=== PATIENT | female | born 1950 | race Caucasian/White ===

== ENCOUNTER 2019-12-02 15:45 | Inpatient (IN) | payer MEDICARE, OTHER ==
[2019-12-02] MEDS ORDERED: CLON.5 PO (17:23)
[2019-12-02] MEDS ORDERED: PARO20TA24 PO (17:23)
[2019-12-02] MEDS ORDERED: OLAN10TA3 PO (17:23)
[2019-12-02] MEDS ORDERED: ATOR40TA28 PO (17:23)
[2019-12-02] MEDS ORDERED: ERGO500054 PO (17:23)
[2019-12-02] MEDS ORDERED: LOPERAMIDE HCL 2 MG CAPSULE PO PRN (20:30)
[2019-12-02] MEDS ORDERED: MAG HYDROX/AL HYDROX/SIMETH ES 30 ML SUSPENSION UDCUP PO PRN (20:30)
[2019-12-02] MEDS ORDERED: ZOLPIDEM TARTRATE 10 MG TABLET PO PRN (20:30)
[2019-12-02] MEDS ORDERED: TUBERCULIN, PURIFIED PROTEIN DERIVATIVE 5 TU/0.1 ML SYRINGE ID ONE (20:30)
[2019-12-02] MEDS ORDERED: INFLUENZA VIRUS VACCINE QVS 2019-20 (3YR+)/PF 60 MCG/0.5 ML SYRINGE IM ONE (20:30)
[2019-12-02] MEDS ORDERED: GuaiFENesin/D-METHORPHAN [SUGAR-FREE] 200-20MG/10 ML SYRUP UDCUP PO PRN (20:30)
[2019-12-02] MEDS ORDERED: MAGNESIUM HYDROXIDE SUSPENSION 30 ML UDCUP PO PRN (20:30)
[2019-12-02] MEDS ORDERED: PROMETHAZINE HCL 25 MG TABLET PO PRN (20:30)
[2019-12-02] MEDS ORDERED: LORazepam 2 MG TABLET PO PRN (20:30)
[2019-12-02] MEDS ORDERED: ACETAMINOPHEN 325 MG TABLET PO PRN (20:30)
[2019-12-02] MEDS ORDERED: HydrOXYzine PAMOATE 50 MG CAPSULE PO PRN (20:30)
[2019-12-02] MEDS ORDERED: OLANZapine 5 MG RAPDIS TABLET PO PRN (20:30)
[2019-12-02 21:17] VITALS: BP 135/87
[2019-12-03] MEDS ORDERED: OLAN5TAB40 PO (08:04)
[2019-12-03] MEDS ORDERED: PARO20TA24 PO (08:04)
[2019-12-03] MEDS ORDERED: PARO-37 PO (08:07)
[2019-12-03] MEDS ORDERED: OLAN5TAB30 PO (08:07)
[2019-12-03] MEDS ORDERED: LORA-999 PO (08:07)
[2019-12-03] MEDS: LORazepam 0.5 MG TABLET PO SCH ×5 (09:00→20:58)
[2019-12-03] MEDS: MULTIVITAMINS WITH MINERALS, THERAPEUTIC TABLET PO SCH (09:00)
[2019-12-03] MEDS: OLANZapine 5 MG RAPDIS TABLET PO SCH ×2 (09:00→16:19)
[2019-12-03] MEDS: THIAMINE 100 MG TABLET PO SCH ×2 (09:00→16:19)
[2019-12-03] MEDS: FOLIC ACID 1 MG TABLET PO SCH (09:00)
[2019-12-03] MEDS: PARoxetine HCL 20 MG TABLET PO SCH (09:00)
[2019-12-03 10:11] VITALS: BP 130/67
[2019-12-04] MEDS: THIAMINE 100 MG TABLET PO SCH ×2 (09:00→16:59)
[2019-12-04] MEDS: MULTIVITAMINS WITH MINERALS, THERAPEUTIC TABLET PO SCH (09:00)
[2019-12-04] MEDS: LORazepam 0.5 MG TABLET PO SCH ×4 (09:00→21:00)
[2019-12-04] MEDS: OLANZapine 5 MG RAPDIS TABLET PO SCH (09:00)
[2019-12-04] MEDS: FOLIC ACID 1 MG TABLET PO SCH (09:00)
[2019-12-04] MEDS: PARoxetine HCL 20 MG TABLET PO SCH (09:00)
[2019-12-04] MEDS ORDERED: PALIPERIDONE 1.5 MG ER TABLET PO PRN (15:15)
[2019-12-04] MEDS ORDERED: PALIPERIDONE PALMITATE 234 MG/1.5 ML SYRINGE IM ONE (15:15)
[2019-12-04 18:33] VITALS: BP 108/74
[2019-12-04] MEDS: PALIPERIDONE 3 MG ER TABLET PO SCH (21:00)
[2019-12-05 08:34] VITALS: BP 130/73
[2019-12-05] MEDS: LORazepam 0.5 MG TABLET PO SCH ×4 (09:00→21:00)
[2019-12-05] MEDS: FOLIC ACID 1 MG TABLET PO SCH (09:00)
[2019-12-05] MEDS: PARoxetine HCL 20 MG TABLET PO SCH (09:00)
[2019-12-05] MEDS: MULTIVITAMINS WITH MINERALS, THERAPEUTIC TABLET PO SCH (09:00)
[2019-12-05] MEDS: THIAMINE 100 MG TABLET PO SCH ×2 (09:00→17:00)
[2019-12-05 17:00] VITALS: BP 127/77
[2019-12-05] MEDS: PALIPERIDONE 3 MG ER TABLET PO SCH (21:00)
[2019-12-06 05:22] VITALS: BP 121/74
[2019-12-06 08:08] LABS: BASOPHILS % (AUTO) 0.8 % (0.0-2.0); EOSINOPHILS % (AUTO) 0.9 % (1.0-6.0); HEMATOCRIT 43.4 % (36-46); HEMOGLOBIN 13.8 g/dL (12.0-16.0); LYMPHOCYTES % (AUTO) 21.3 % (22.0-44.0); MEAN CORPUSCULAR HEMOGLOBIN 27.3 pg (26.0-34.0); MEAN CORPUSCULAR HGB CONC 31.8 G/dL (31.0-37.0); MEAN CORPUSCULAR VOLUME 86 fL (80-100); MONOCYTES # (AUTO) 0.5 K/uL (0.1-1.0); MONOCYTES % (AUTO) 12.1 % (2.0-9.0); NEUTROPHILS # (AUTO) 2.9 K/uL (1.8-7.7); NEUTROPHILS % (AUTO) 64.9 % (40.0-70.0); PLATELET COUNT (AUTO) 188 K/uL (150-450); RED BLOOD CELL COUNT(AUTO) 5.05 MIL/uL (4.00-5.20); RED CELL DISTRIBUTION WIDTH 13.1 % (11.5-14.5)
[2019-12-06 08:33] LABS: ALANINE AMINOTRANSFERASE 12 U/L (12-78); ALBUMIN 3.4 g/dL (3.4-5.0); ALKALINE PHOSPHATASE 69 U/L (46-116); ANION GAP 11 mmol/L (8-16); ASPARTATE AMINOTRANSFERASE 12 U/L (15-37); BILIRUBIN,TOTAL 1.3 mg/dL (0.1-1.0); CALCIUM, TOTAL 9.4 mg/dL (8.8-10.5); CARBON DIOXIDE 25 mmol/L (22-29); CHLORIDE 106 mmol/L (98-107); CHOL/HDL RATIO 3.3 (3.9-5.7); CHOLESTEROL 151 mg/dL (131-200); CREATINE KINASE, TOTAL ONLY 18 U/L (26-192); CREATININE 0.72 mg/dL (0.60-1.30); FREE T4 (FREE THYROXINE) 1.37 ng/dL (0.76-1.46); GLOMERULAR FILTR. RATE CALC > 60 mL/min (>60); GLUCOSE,RANDOM 83 mg/dL (70-110); HDL CHOLESTEROL 46 mg/dL (40-60); LDL CHOL (CALC.) 86 mg/dL (0-130); POTASSIUM 3.6 mmol/L (3.5-5.1); SODIUM SERUM 142 mmol/L (136-145); TOTAL PROTEIN, SERUM 6.8 g/dL (6.4-8.2); TRIGLYCERIDES 94 mg/dL (15-150); UREA NITROGEN, BLOOD 19 mg/dL (7-18)
[2019-12-06 08:58] VITALS: BP 101/65
[2019-12-06] MEDS: MULTIVITAMINS WITH MINERALS, THERAPEUTIC TABLET PO SCH (09:00)
[2019-12-06] MEDS: THIAMINE 100 MG TABLET PO SCH ×2 (09:00→17:00)
[2019-12-06] MEDS: PARoxetine HCL 20 MG TABLET PO SCH (09:00)
[2019-12-06] MEDS: LORazepam 0.5 MG TABLET PO SCH ×4 (09:00→21:42)
[2019-12-06] MEDS: FOLIC ACID 1 MG TABLET PO SCH (09:00)
[2019-12-06 16:18] VITALS: BP 125/71
[2019-12-06] MEDS ORDERED: OLANZapine 5 MG RAPDIS TABLET PO PRN (18:45)
[2019-12-06] MEDS: OLANZapine 5 MG RAPDIS TABLET PO SCH (21:42)
[2019-12-07 01:17] VITALS: BP 113/64
[2019-12-07 08:50] LABS: BASOPHILS % (AUTO) 1.1 % (0.0-2.0); EOSINOPHILS % (AUTO) 1.3 % (1.0-6.0); HEMATOCRIT 42.9 % (36-46); LYMPHOCYTES # (AUTO) 0.9 K/uL (1.0-4.8); LYMPHOCYTES % (AUTO) 22.8 % (22.0-44.0); MEAN CORPUSCULAR HGB CONC 32.6 G/dL (31.0-37.0); MEAN CORPUSCULAR VOLUME 86 fL (80-100); MONOCYTES # (AUTO) 0.5 K/uL (0.1-1.0); MONOCYTES % (AUTO) 13.7 % (2.0-9.0); NEUTROPHILS # (AUTO) 2.3 K/uL (1.8-7.7); NEUTROPHILS % (AUTO) 61.1 % (40.0-70.0); PLATELET COUNT (AUTO) 179 K/uL (150-450); RED BLOOD CELL COUNT(AUTO) 5.01 MIL/uL (4.00-5.20); RED CELL DISTRIBUTION WIDTH 13.4 % (11.5-14.5)
[2019-12-07] MEDS: MULTIVITAMINS WITH MINERALS, THERAPEUTIC TABLET PO SCH (09:00)
[2019-12-07] MEDS: PARoxetine HCL 20 MG TABLET PO SCH (09:00)
[2019-12-07] MEDS: FOLIC ACID 1 MG TABLET PO SCH (09:00)
[2019-12-07] MEDS: LORazepam 0.5 MG TABLET PO SCH ×4 (09:00→20:23)
[2019-12-07] MEDS: THIAMINE 100 MG TABLET PO SCH ×2 (09:00→16:40)
[2019-12-07 09:05] LABS: ALBUMIN 3.4 g/dL (3.4-5.0); BILIRUBIN,DIRECT 0.2 mg/dL (0.00-0.20); BILIRUBIN,TOTAL 1.1 mg/dL (0.1-1.0); TOTAL PROTEIN, SERUM 6.3 g/dL (6.4-8.2)
[2019-12-07 09:49] LABS: HIV 1-2 SCREEN 4TH GEN W/RFLX Non Reactive (Non Reactive)
[2019-12-07] MEDS: OLANZapine 5 MG RAPDIS TABLET PO SCH (20:23)
[2019-12-08 07:07] LABS: BASOPHILS % (AUTO) 0.8 % (0.0-2.0); EOSINOPHILS % (AUTO) 1.2 % (1.0-6.0); HEMATOCRIT 43.5 % (36-46); HEMOGLOBIN 14.1 g/dL (12.0-16.0); LYMPHOCYTES # (AUTO) 1.4 K/uL (1.0-4.8); LYMPHOCYTES % (AUTO) 32.3 % (22.0-44.0); MEAN CORPUSCULAR HEMOGLOBIN 27.9 pg (26.0-34.0); MEAN CORPUSCULAR HGB CONC 32.4 G/dL (31.0-37.0); MEAN CORPUSCULAR VOLUME 86 fL (80-100); MONOCYTES # (AUTO) 0.5 K/uL (0.1-1.0); MONOCYTES % (AUTO) 12.8 % (2.0-9.0); NEUTROPHILS # (AUTO) 2.2 K/uL (1.8-7.7); NEUTROPHILS % (AUTO) 52.9 % (40.0-70.0); PLATELET COUNT (AUTO) 178 K/uL (150-450); RED BLOOD CELL COUNT(AUTO) 5.06 MIL/uL (4.00-5.20); RED CELL DISTRIBUTION WIDTH 13.3 % (11.5-14.5)
[2019-12-08 07:32] LABS: ALBUMIN 3.4 g/dL (3.4-5.0); BILIRUBIN,DIRECT 0.2 mg/dL (0.00-0.20); TOTAL PROTEIN, SERUM 6.7 g/dL (6.4-8.2)
[2019-12-08 08:38] VITALS: BP 115/61
[2019-12-08] MEDS: LORazepam 0.5 MG TABLET PO SCH ×4 (09:00→21:00)
[2019-12-08] MEDS: FOLIC ACID 1 MG TABLET PO SCH (09:00)
[2019-12-08] MEDS: MULTIVITAMINS WITH MINERALS, THERAPEUTIC TABLET PO SCH (09:00)
[2019-12-08] MEDS: THIAMINE 100 MG TABLET PO SCH ×2 (09:00→16:24)
[2019-12-08] MEDS: PARoxetine HCL 20 MG TABLET PO SCH (09:00)
[2019-12-08] MEDS ORDERED: PALIPERIDONE PALMITATE 156 MG/ML SYRINGE IM ONE (09:00)
[2019-12-08 16:28] VITALS: BP 127/79
[2019-12-08] MEDS: OLANZapine 5 MG RAPDIS TABLET PO SCH (21:00)
[2019-12-09] MEDS: MULTIVITAMINS WITH MINERALS, THERAPEUTIC TABLET PO SCH (08:39)
[2019-12-09] MEDS: PARoxetine HCL 20 MG TABLET PO SCH (08:40)
[2019-12-09] MEDS: FOLIC ACID 1 MG TABLET PO SCH (08:40)
[2019-12-09] MEDS: THIAMINE 100 MG TABLET PO SCH ×2 (08:51→17:00)
[2019-12-09] MEDS: LORazepam 0.5 MG TABLET PO SCH ×4 (08:51→21:00)
[2019-12-09 08:56] VITALS: BP 92/54
[2019-12-09] MEDS ORDERED: HALOPERIDOL LACTATE 10 MG/5 ML SOLUTION UDCUP PO PRN (11:15)
[2019-12-09] MEDS: HALOPERIDOL LACTATE 10 MG/5 ML SOLUTION UDCUP PO SCH ×3 (12:33→21:00)
[2019-12-09 16:14] VITALS: BP 102/69
[2019-12-10 07:38] LABS: EOSINOPHILS % (AUTO) 0.8 % (1.0-6.0); HEMATOCRIT 42.9 % (36-46); HEMOGLOBIN 14.2 g/dL (12.0-16.0); LYMPHOCYTES # (AUTO) 1.1 K/uL (1.0-4.8); LYMPHOCYTES % (AUTO) 27.2 % (22.0-44.0); MEAN CORPUSCULAR HEMOGLOBIN 28.2 pg (26.0-34.0); MEAN CORPUSCULAR VOLUME 86 fL (80-100); MONOCYTES # (AUTO) 0.4 K/uL (0.1-1.0); MONOCYTES % (AUTO) 9.4 % (2.0-9.0); NEUTROPHILS # (AUTO) 2.5 K/uL (1.8-7.7); NEUTROPHILS % (AUTO) 61.6 % (40.0-70.0); PLATELET COUNT (AUTO) 181 K/uL (150-450); RED BLOOD CELL COUNT(AUTO) 5.02 MIL/uL (4.00-5.20); RED CELL DISTRIBUTION WIDTH 13.4 % (11.5-14.5)
[2019-12-10] MEDS: HALOPERIDOL LACTATE 10 MG/5 ML SOLUTION UDCUP PO SCH ×4 (08:47→21:00)
[2019-12-10] MEDS: PARoxetine HCL 20 MG TABLET PO SCH (09:00)
[2019-12-10] MEDS: LORazepam 0.5 MG TABLET PO SCH ×4 (09:00→21:00)
[2019-12-10] MEDS: THIAMINE 100 MG TABLET PO SCH ×2 (09:00→17:00)
[2019-12-10] MEDS: FOLIC ACID 1 MG TABLET PO SCH (09:00)
[2019-12-10] MEDS: MULTIVITAMINS WITH MINERALS, THERAPEUTIC TABLET PO SCH (09:00)
[2019-12-10 10:30] VITALS: BP 113/66
[2019-12-10 16:42] VITALS: BP 124/67
[2019-12-10] MEDS ORDERED: PALIPERIDONE PALMITATE 234 MG/1.5 ML SYRINGE IM ONE (20:45)
[2019-12-11] MEDS: HALOPERIDOL LACTATE 10 MG/5 ML SOLUTION UDCUP PO SCH ×4 (09:00→20:33)
[2019-12-11] MEDS: PARoxetine HCL 20 MG TABLET PO SCH (09:00)
[2019-12-11] MEDS: FOLIC ACID 1 MG TABLET PO SCH (09:00)
[2019-12-11] MEDS: THIAMINE 100 MG TABLET PO SCH ×2 (09:00→16:28)
[2019-12-11] MEDS: MULTIVITAMINS WITH MINERALS, THERAPEUTIC TABLET PO SCH (09:00)
[2019-12-11] MEDS: LORazepam 0.5 MG TABLET PO SCH ×4 (09:00→20:33)
[2019-12-11 16:22] VITALS: BP 116/69
[2019-12-12 08:00] VITALS: BP 107/64
[2019-12-12] MEDS: PARoxetine HCL 20 MG TABLET PO SCH (08:43)
[2019-12-12] MEDS: HALOPERIDOL LACTATE 10 MG/5 ML SOLUTION UDCUP PO SCH ×4 (08:43→21:00)
[2019-12-12] MEDS: FOLIC ACID 1 MG TABLET PO SCH (08:43)
[2019-12-12] MEDS: LORazepam 0.5 MG TABLET PO SCH ×4 (08:43→21:00)
[2019-12-12] MEDS: THIAMINE 100 MG TABLET PO SCH (08:44)
[2019-12-12] MEDS: MULTIVITAMINS WITH MINERALS, THERAPEUTIC TABLET PO SCH (08:44)
[2019-12-12 16:32] VITALS: BP 111/63
[2019-12-13] MEDS: HALOPERIDOL LACTATE 10 MG/5 ML SOLUTION UDCUP PO SCH ×4 (09:00→20:50)
[2019-12-13] MEDS: PARoxetine HCL 20 MG TABLET PO SCH (09:00)
[2019-12-13] MEDS: MULTIVITAMINS WITH MINERALS, THERAPEUTIC TABLET PO SCH (09:00)
[2019-12-13] MEDS: LORazepam 0.5 MG TABLET PO SCH ×4 (09:00→20:50)
[2019-12-14] MEDS: PARoxetine HCL 20 MG TABLET PO SCH (09:00)
[2019-12-14] MEDS: MULTIVITAMINS WITH MINERALS, THERAPEUTIC TABLET PO SCH (09:00)
[2019-12-14] MEDS: HALOPERIDOL LACTATE 10 MG/5 ML SOLUTION UDCUP PO SCH ×4 (09:00→21:00)
[2019-12-14] MEDS ORDERED: PALIPERIDONE PALMITATE 156 MG/ML SYRINGE IM ONE (09:00)
[2019-12-14] MEDS: LORazepam 0.5 MG TABLET PO SCH ×4 (09:00→21:00)
[2019-12-15] MEDS: HALOPERIDOL LACTATE 10 MG/5 ML SOLUTION UDCUP PO SCH ×4 (09:00→21:00)
[2019-12-15] MEDS: MULTIVITAMINS WITH MINERALS, THERAPEUTIC TABLET PO SCH (09:00)
[2019-12-15] MEDS: LORazepam 0.5 MG TABLET PO SCH ×4 (09:00→21:00)
[2019-12-15] MEDS: PARoxetine HCL 20 MG TABLET PO SCH (09:00)
[2019-12-15 16:39] VITALS: BP 98/67
[2019-12-16] MEDS: PARoxetine HCL 20 MG TABLET PO SCH (09:00)
[2019-12-16] MEDS: LORazepam 0.5 MG TABLET PO SCH ×4 (09:00→21:00)
[2019-12-16] MEDS: MULTIVITAMINS WITH MINERALS, THERAPEUTIC TABLET PO SCH (09:00)
[2019-12-16] MEDS: HALOPERIDOL LACTATE 10 MG/5 ML SOLUTION UDCUP PO SCH ×4 (09:00→21:00)
[2019-12-16 09:24] VITALS: BP 106/65
[2019-12-16 16:11] VITALS: BP 99/67
[2019-12-17] MEDS: MULTIVITAMINS WITH MINERALS, THERAPEUTIC TABLET PO SCH (09:00)
[2019-12-17] MEDS: LORazepam 0.5 MG TABLET PO SCH ×4 (09:00→21:00)
[2019-12-17] MEDS: HALOPERIDOL LACTATE 10 MG/5 ML SOLUTION UDCUP PO SCH ×4 (09:00→21:00)
[2019-12-17] MEDS: PARoxetine HCL 20 MG TABLET PO SCH (09:00)
[2019-12-17 16:21] VITALS: BP 142/77
[2019-12-18] MEDS: HALOPERIDOL LACTATE 10 MG/5 ML SOLUTION UDCUP PO SCH ×4 (09:00→20:30)
[2019-12-18] MEDS: PARoxetine HCL 20 MG TABLET PO SCH (09:00)
[2019-12-18] MEDS: MULTIVITAMINS WITH MINERALS, THERAPEUTIC TABLET PO SCH (09:00)
[2019-12-18] MEDS: LORazepam 0.5 MG TABLET PO SCH ×4 (09:00→20:31)
[2019-12-19 07:38] LABS: BASOPHILS % (AUTO) 0.9 % (0.0-2.0); EOSINOPHILS % (AUTO) 1.6 % (1.0-6.0); HEMATOCRIT 39.8 % (36-46); HEMOGLOBIN 13.1 g/dL (12.0-16.0); LYMPHOCYTES % (AUTO) 25.5 % (22.0-44.0); MEAN CORPUSCULAR HEMOGLOBIN 28.2 pg (26.0-34.0); MEAN CORPUSCULAR HGB CONC 32.9 G/dL (31.0-37.0); MEAN CORPUSCULAR VOLUME 86 fL (80-100); MONOCYTES # (AUTO) 0.4 K/uL (0.1-1.0); MONOCYTES % (AUTO) 11.3 % (2.0-9.0); NEUTROPHILS # (AUTO) 2.4 K/uL (1.8-7.7); NEUTROPHILS % (AUTO) 60.7 % (40.0-70.0); PLATELET COUNT (AUTO) 159 K/uL (150-450); RED BLOOD CELL COUNT(AUTO) 4.66 MIL/uL (4.00-5.20); RED CELL DISTRIBUTION WIDTH 13.8 % (11.5-14.5)
[2019-12-19 08:00] VITALS: BP 151/73
[2019-12-19] MEDS: PARoxetine HCL 20 MG TABLET PO SCH (09:00)
[2019-12-19] MEDS: MULTIVITAMINS WITH MINERALS, THERAPEUTIC TABLET PO SCH (09:00)
[2019-12-19] MEDS: HALOPERIDOL LACTATE 10 MG/5 ML SOLUTION UDCUP PO SCH ×4 (09:00→20:30)
[2019-12-19] MEDS: LORazepam 0.5 MG TABLET PO SCH ×4 (09:00→20:29)
[2019-12-19 17:45] VITALS: BP 107/81
[2019-12-20 07:45] LABS: BASOPHILS % (AUTO) 0.9 % (0.0-2.0); EOSINOPHILS % (AUTO) 1.1 % (1.0-6.0); HEMATOCRIT 43.8 % (36-46); HEMOGLOBIN 14.3 g/dL (12.0-16.0); LYMPHOCYTES # (AUTO) 1.2 K/uL (1.0-4.8); LYMPHOCYTES % (AUTO) 28.2 % (22.0-44.0); MEAN CORPUSCULAR HEMOGLOBIN 28.2 pg (26.0-34.0); MEAN CORPUSCULAR HGB CONC 32.6 G/dL (31.0-37.0); MEAN CORPUSCULAR VOLUME 87 fL (80-100); MONOCYTES # (AUTO) 0.4 K/uL (0.1-1.0); MONOCYTES % (AUTO) 9.8 % (2.0-9.0); NEUTROPHILS # (AUTO) 2.5 K/uL (1.8-7.7); PLATELET COUNT (AUTO) 177 K/uL (150-450); RED BLOOD CELL COUNT(AUTO) 5.06 MIL/uL (4.00-5.20); RED CELL DISTRIBUTION WIDTH 13.7 % (11.5-14.5)
[2019-12-20 08:01] LABS: ALANINE AMINOTRANSFERASE 17 U/L (12-78); ALBUMIN 3.6 g/dL (3.4-5.0); ALKALINE PHOSPHATASE 65 U/L (46-116); ANION GAP 12 mmol/L (8-16); ASPARTATE AMINOTRANSFERASE 20 U/L (15-37); BILIRUBIN,TOTAL 1.6 mg/dL (0.1-1.0); CALCIUM, TOTAL 9.3 mg/dL (8.8-10.5); CARBON DIOXIDE 25 mmol/L (22-29); CHLORIDE 106 mmol/L (98-107); CREATININE 0.77 mg/dL (0.60-1.30); GLOMERULAR FILTR. RATE CALC > 60 mL/min (>60); GLUCOSE,RANDOM 81 mg/dL (70-110); POTASSIUM 4.6 mmol/L (3.5-5.1); SODIUM SERUM 143 mmol/L (136-145); TOTAL PROTEIN, SERUM 6.9 g/dL (6.4-8.2); UREA NITROGEN, BLOOD 20 mg/dL (7-18)
[2019-12-20 08:50] VITALS: BP 125/71
[2019-12-20] MEDS: MULTIVITAMINS WITH MINERALS, THERAPEUTIC TABLET PO SCH (09:00)
[2019-12-20] MEDS: HALOPERIDOL LACTATE 10 MG/5 ML SOLUTION UDCUP PO SCH ×4 (09:00→20:10)
[2019-12-20] MEDS: LORazepam 0.5 MG TABLET PO SCH ×4 (09:00→20:09)
[2019-12-20] MEDS: PARoxetine HCL 20 MG TABLET PO SCH (09:00)
[2019-12-20 16:46] VITALS: BP 97/70
[2019-12-21] MEDS: PARoxetine HCL 20 MG TABLET PO SCH (08:52)
[2019-12-21] MEDS: MULTIVITAMINS WITH MINERALS, THERAPEUTIC TABLET PO SCH (08:52)
[2019-12-21] MEDS: LORazepam 0.5 MG TABLET PO SCH ×4 (08:53→21:00)
[2019-12-21] MEDS: HALOPERIDOL LACTATE 10 MG/5 ML SOLUTION UDCUP PO SCH ×4 (08:53→21:00)
[2019-12-21 10:50] VITALS: BP 112/68
[2019-12-22 08:01] VITALS: BP 103/59
[2019-12-22] MEDS: LORazepam 0.5 MG TABLET PO SCH ×4 (09:00→20:40)
[2019-12-22] MEDS: HALOPERIDOL LACTATE 10 MG/5 ML SOLUTION UDCUP PO SCH ×4 (09:00→20:40)
[2019-12-22] MEDS: PARoxetine HCL 20 MG TABLET PO SCH (09:00)
[2019-12-22] MEDS: MULTIVITAMINS WITH MINERALS, THERAPEUTIC TABLET PO SCH (09:00)
[2019-12-22 16:08] VITALS: BP 96/57
[2019-12-23 08:20] VITALS: BP 112/55
[2019-12-23] MEDS: HALOPERIDOL LACTATE 10 MG/5 ML SOLUTION UDCUP PO SCH ×2 (09:00→13:00)
[2019-12-23] MEDS: MULTIVITAMINS WITH MINERALS, THERAPEUTIC TABLET PO SCH (09:00)
[2019-12-23] MEDS: LORazepam 0.5 MG TABLET PO SCH ×4 (09:00→21:48)
[2019-12-23] MEDS: PARoxetine HCL 20 MG TABLET PO SCH (09:00)
[2019-12-23 16:28] VITALS: BP 119/73
[2019-12-23] MEDS: QUEtiapine FUMARATE 25 MG TABLET PO SCH ×2 (16:43→21:48)
[2019-12-24 08:00] VITALS: BP 120/57
[2019-12-24] MEDS: QUEtiapine FUMARATE 25 MG TABLET PO SCH ×4 (09:00→20:42)
[2019-12-24] MEDS: MULTIVITAMINS WITH MINERALS, THERAPEUTIC TABLET PO SCH (09:00)
[2019-12-24] MEDS: PARoxetine HCL 20 MG TABLET PO SCH (09:00)
[2019-12-24] MEDS: LORazepam 0.5 MG TABLET PO SCH ×5 (09:00→20:42)
[2019-12-24] MEDS: HALOPERIDOL LACTATE 5 MG/ML VIAL IM PRN ×2 (09:28→13:58)
[2019-12-24 16:33] VITALS: BP 127/57
[2019-12-25] MEDS: PARoxetine HCL 20 MG TABLET PO SCH (08:44)
[2019-12-25] MEDS: QUEtiapine FUMARATE 25 MG TABLET PO SCH ×4 (08:44→21:13)
[2019-12-25] MEDS: LORazepam 0.5 MG TABLET PO SCH ×4 (08:44→21:13)
[2019-12-25] MEDS: MULTIVITAMINS WITH MINERALS, THERAPEUTIC TABLET PO SCH (08:58)
[2019-12-25 09:00] VITALS: BP 110/57
[2019-12-25] MEDS: HALOPERIDOL LACTATE 5 MG/ML VIAL IM PRN ×2 (13:25→17:16)
[2019-12-25 17:00] VITALS: BP 99/56
[2019-12-26 09:08] VITALS: BP 128/65
[2019-12-26] MEDS: PARoxetine HCL 20 MG TABLET PO SCH (10:38)
[2019-12-26] MEDS: LORazepam 0.5 MG TABLET PO SCH ×3 (10:38→16:23)
[2019-12-26] MEDS: MULTIVITAMINS WITH MINERALS, THERAPEUTIC TABLET PO SCH (10:38)
[2019-12-26] MEDS: QUEtiapine FUMARATE 25 MG TABLET PO SCH ×4 (10:38→21:43)
[2019-12-26] MEDS: HALOPERIDOL LACTATE 5 MG/ML VIAL IM PRN (14:18)
[2019-12-26 16:11] VITALS: BP 125/81
[2019-12-27] MEDS: LORazepam 1 MG TABLET PO SCH ×3 (08:58→16:26)
[2019-12-27] MEDS: PARoxetine HCL 20 MG TABLET PO SCH (08:58)
[2019-12-27] MEDS: QUEtiapine FUMARATE 25 MG TABLET PO SCH ×4 (08:59→21:00)
[2019-12-27] MEDS: MULTIVITAMINS WITH MINERALS, THERAPEUTIC TABLET PO SCH (08:59)
[2019-12-27] MEDS: HALOPERIDOL LACTATE 5 MG/ML VIAL IM PRN ×4 (09:00→21:22)
[2019-12-27 10:41] VITALS: BP 115/60
[2019-12-28 08:24] VITALS: BP 102/58
[2019-12-28] MEDS: QUEtiapine FUMARATE 25 MG TABLET PO SCH ×4 (09:00→21:18)
[2019-12-28] MEDS: MULTIVITAMINS WITH MINERALS, THERAPEUTIC TABLET PO SCH (09:00)
[2019-12-28] MEDS: PARoxetine HCL 20 MG TABLET PO SCH (09:00)
[2019-12-28] MEDS: LORazepam 1 MG TABLET PO SCH ×3 (09:00→17:29)
[2019-12-28] MEDS: HALOPERIDOL LACTATE 5 MG/ML VIAL IM PRN ×2 (09:41→13:01)
[2019-12-28 16:25] VITALS: BP 117/79
[2019-12-29 08:56] VITALS: BP 103/52
[2019-12-29] MEDS: MULTIVITAMINS WITH MINERALS, THERAPEUTIC TABLET PO SCH (09:00)
[2019-12-29] MEDS: QUEtiapine FUMARATE 25 MG TABLET PO SCH ×4 (09:00→20:22)
[2019-12-29] MEDS: PARoxetine HCL 20 MG TABLET PO SCH (09:00)
[2019-12-29] MEDS: LORazepam 1 MG TABLET PO SCH ×3 (09:00→16:19)
[2019-12-29] MEDS: HALOPERIDOL LACTATE 5 MG/ML VIAL IM PRN ×2 (09:55→13:09)
[2019-12-29 16:04] VITALS: BP 117/69
[2019-12-30 08:41] VITALS: BP 121/74
[2019-12-30] MEDS: QUEtiapine FUMARATE 25 MG TABLET PO SCH ×4 (08:45→22:46)
[2019-12-30] MEDS: MULTIVITAMINS WITH MINERALS, THERAPEUTIC TABLET PO SCH (08:46)
[2019-12-30] MEDS: PARoxetine HCL 20 MG TABLET PO SCH (08:46)
[2019-12-30] MEDS: LORazepam 1 MG TABLET PO SCH ×4 (08:46→22:45)
[2019-12-30 16:20] VITALS: BP 104/54
[2019-12-31] MEDS: PARoxetine HCL 20 MG TABLET PO SCH ×2 (09:00→10:40)
[2019-12-31] MEDS: MULTIVITAMINS WITH MINERALS, THERAPEUTIC TABLET PO SCH ×2 (09:00→10:40)
[2019-12-31] MEDS: LORazepam 1 MG TABLET PO SCH ×5 (09:00→21:02)
[2019-12-31] MEDS: QUEtiapine FUMARATE 25 MG TABLET PO SCH ×4 (09:00→16:28)
[2019-12-31 10:19] VITALS: BP 117/71
[2019-12-31] MEDS: HALOPERIDOL LACTATE 5 MG/ML VIAL IM PRN (12:33)
[2019-12-31 16:35] VITALS: BP 105/55
[2019-12-31] MEDS: QUEtiapine FUMARATE 100 MG TABLET PO SCH (21:02)
[2019-12-31 21:47] VITALS: BP 113/67
[2020-01-01] MEDS: PARoxetine HCL 10 MG TABLET PO SCH (08:48)
[2020-01-01] MEDS: LORazepam 1 MG TABLET PO SCH ×3 (08:48→18:01)
[2020-01-01] MEDS: QUEtiapine FUMARATE 100 MG TABLET PO SCH ×4 (08:48→21:00)
[2020-01-01] MEDS: MULTIVITAMINS WITH MINERALS, THERAPEUTIC TABLET PO SCH (09:00)
[2020-01-01 09:20] VITALS: BP 111/55
[2020-01-01 16:23] VITALS: BP 109/62
[2020-01-01] MEDS: HALOPERIDOL LACTATE 5 MG/ML VIAL IM PRN (21:46)
[2020-01-02 08:22] VITALS: BP 109/49
[2020-01-02] MEDS: LORazepam 1 MG TABLET PO SCH ×4 (09:00→20:31)
[2020-01-02] MEDS: MULTIVITAMINS WITH MINERALS, THERAPEUTIC TABLET PO SCH (09:00)
[2020-01-02] MEDS: PARoxetine HCL 10 MG TABLET PO SCH (09:00)
[2020-01-02] MEDS: QUEtiapine FUMARATE 100 MG TABLET PO SCH ×2 (09:00→11:57)
[2020-01-02 09:16] VITALS: BP 121/61
[2020-01-02] MEDS: HALOPERIDOL LACTATE 5 MG/ML VIAL IM PRN ×3 (09:53→20:32)
[2020-01-02 11:54] VITALS: BP 113/81
[2020-01-02 16:28] VITALS: BP 114/60
[2020-01-02] MEDS: QUEtiapine FUMARATE 200 MG TABLET PO SCH ×2 (16:31→20:31)
[2020-01-03] MEDS: LORazepam 1 MG TABLET PO SCH ×5 (08:33→21:00)
[2020-01-03] MEDS: QUEtiapine FUMARATE 200 MG TABLET PO SCH ×5 (08:34→21:00)
[2020-01-03] MEDS: MULTIVITAMINS WITH MINERALS, THERAPEUTIC TABLET PO SCH (08:34)
[2020-01-03] MEDS: PARoxetine HCL 10 MG TABLET PO SCH (08:34)
[2020-01-03] MEDS: HALOPERIDOL LACTATE 5 MG/ML VIAL IM PRN ×4 (08:35→21:25)
[2020-01-03 09:37] VITALS: BP 122/68
[2020-01-03 16:20] VITALS: BP 146/73
[2020-01-04 08:59] VITALS: BP 128/74
[2020-01-04] MEDS: PARoxetine HCL 10 MG TABLET PO SCH (09:00)
[2020-01-04] MEDS: LORazepam 1 MG TABLET PO SCH ×4 (09:00→21:00)
[2020-01-04] MEDS: MULTIVITAMINS WITH MINERALS, THERAPEUTIC TABLET PO SCH (09:00)
[2020-01-04] MEDS: QUEtiapine FUMARATE 200 MG TABLET PO SCH ×4 (09:00→21:00)
[2020-01-04] MEDS: HALOPERIDOL LACTATE 5 MG/ML VIAL IM PRN ×4 (09:23→21:27)
[2020-01-04 16:44] VITALS: BP 120/75
[2020-01-05] MEDS: QUEtiapine FUMARATE 200 MG TABLET PO SCH ×4 (09:00→21:00)
[2020-01-05] MEDS: MULTIVITAMINS WITH MINERALS, THERAPEUTIC TABLET PO SCH (09:00)
[2020-01-05] MEDS: LORazepam 1 MG TABLET PO SCH ×4 (09:00→21:00)
[2020-01-05] MEDS: PARoxetine HCL 10 MG TABLET PO SCH (09:00)
[2020-01-05] MEDS: HALOPERIDOL LACTATE 5 MG/ML VIAL IM PRN ×4 (09:39→21:55)
[2020-01-05 12:28] VITALS: BP_SYST 62
[2020-01-06 08:17] VITALS: BP 104/56
[2020-01-06] MEDS: LORazepam 1 MG TABLET PO SCH ×4 (09:00→21:00)
[2020-01-06] MEDS: MULTIVITAMINS WITH MINERALS, THERAPEUTIC TABLET PO SCH (09:00)
[2020-01-06] MEDS: PARoxetine HCL 10 MG TABLET PO SCH (09:00)
[2020-01-06] MEDS: QUEtiapine FUMARATE 200 MG TABLET PO SCH ×4 (09:00→21:00)
[2020-01-06] MEDS: HALOPERIDOL LACTATE 5 MG/ML VIAL IM PRN ×4 (09:07→21:17)
[2020-01-06 16:07] VITALS: BP 120/62
[2020-01-07 08:21] VITALS: BP 124/72
[2020-01-07] MEDS: MULTIVITAMINS WITH MINERALS, THERAPEUTIC TABLET PO SCH (09:00)
[2020-01-07] MEDS: FLUoxetine HCL 20 MG/5 ML SOLUTION ORAL.SYG PO SCH (09:00)
[2020-01-07] MEDS: LORazepam 1 MG TABLET PO SCH ×4 (09:00→20:44)
[2020-01-07] MEDS: QUEtiapine FUMARATE 200 MG TABLET PO SCH ×4 (09:00→20:45)
[2020-01-07] MEDS: HALOPERIDOL LACTATE 5 MG/ML VIAL IM PRN ×4 (09:40→20:46)
[2020-01-07 16:41] VITALS: BP 141/80
[2020-01-07 16:42] VITALS: BP 141/80
[2020-01-08 08:26] VITALS: BP 140/75
[2020-01-08] MEDS: FLUoxetine HCL 20 MG/5 ML SOLUTION ORAL.SYG PO SCH (09:00)
[2020-01-08] MEDS: LORazepam 1 MG TABLET PO SCH ×4 (09:00→20:19)
[2020-01-08] MEDS: MULTIVITAMINS WITH MINERALS, THERAPEUTIC TABLET PO SCH (09:00)
[2020-01-08] MEDS: QUEtiapine FUMARATE 200 MG TABLET PO SCH ×4 (09:00→20:24)
[2020-01-08] MEDS: HALOPERIDOL LACTATE 5 MG/ML VIAL IM PRN ×2 (10:18→12:35)
[2020-01-08 16:06] VITALS: BP 137/74
[2020-01-09 08:02] VITALS: BP 114/69
[2020-01-09] MEDS: MULTIVITAMINS WITH MINERALS, THERAPEUTIC TABLET PO SCH (09:00)
[2020-01-09] MEDS: LORazepam 1 MG TABLET PO SCH ×4 (09:00→20:34)
[2020-01-09] MEDS: QUEtiapine FUMARATE 200 MG TABLET PO SCH ×4 (09:00→20:36)
[2020-01-09] MEDS: FLUoxetine HCL 20 MG/5 ML SOLUTION ORAL.SYG PO SCH (09:00)
[2020-01-09] MEDS: HALOPERIDOL LACTATE 5 MG/ML VIAL IM PRN ×4 (09:32→20:38)
[2020-01-09] MEDS ORDERED: LORazepam 1 MG TABLET PO PRN (10:45)
[2020-01-09 16:20] VITALS: BP 121/74
[2020-01-09] MEDS: LORazepam 2 MG/ML VIAL IM PRN ×2 (17:09→20:37)
[2020-01-10] MEDS: MULTIVITAMINS WITH MINERALS, THERAPEUTIC TABLET PO SCH (08:40)
[2020-01-10] MEDS: FLUoxetine HCL 20 MG/5 ML SOLUTION ORAL.SYG PO SCH (08:40)
[2020-01-10] MEDS: LORazepam 1 MG TABLET PO SCH ×4 (08:40→20:50)
[2020-01-10] MEDS: QUEtiapine FUMARATE 200 MG TABLET PO SCH (08:40)
[2020-01-10] MEDS: LORazepam 2 MG/ML VIAL IM PRN ×4 (08:51→20:52)
[2020-01-10] MEDS: HALOPERIDOL LACTATE 5 MG/ML VIAL IM PRN ×4 (08:52→20:53)
[2020-01-10 10:36] VITALS: BP 132/79
[2020-01-10] MEDS: QUEtiapine FUMARATE 25 MG TABLET PO SCH ×3 (13:00→20:50)
[2020-01-10 16:00] VITALS: BP 113/70
[2020-01-10 16:38] VITALS: BP 104/64
[2020-01-11] MEDS: LORazepam 1 MG TABLET PO SCH ×4 (09:00→20:52)
[2020-01-11] MEDS: MULTIVITAMINS WITH MINERALS, THERAPEUTIC TABLET PO SCH (09:00)
[2020-01-11] MEDS: QUEtiapine FUMARATE 25 MG TABLET PO SCH ×4 (09:00→20:52)
[2020-01-11] MEDS: FLUoxetine HCL 20 MG/5 ML SOLUTION ORAL.SYG PO SCH (09:00)
[2020-01-11] MEDS: LORazepam 2 MG/ML VIAL IM PRN ×4 (09:21→20:54)
[2020-01-11] MEDS: HALOPERIDOL LACTATE 5 MG/ML VIAL IM PRN ×4 (09:21→20:55)
[2020-01-11 11:23] VITALS: BP 115/71
[2020-01-11 16:02] VITALS: BP 114/75
[2020-01-12] MEDS: QUEtiapine FUMARATE 25 MG TABLET PO SCH ×4 (08:38→20:23)
[2020-01-12] MEDS: FLUoxetine HCL 20 MG/5 ML SOLUTION ORAL.SYG PO SCH (08:38)
[2020-01-12] MEDS: MULTIVITAMINS WITH MINERALS, THERAPEUTIC TABLET PO SCH (08:38)
[2020-01-12] MEDS: LORazepam 1 MG TABLET PO SCH ×4 (08:38→20:22)
[2020-01-12] MEDS: LORazepam 2 MG/ML VIAL IM PRN ×2 (08:42→13:12)
[2020-01-12] MEDS: HALOPERIDOL LACTATE 5 MG/ML VIAL IM PRN ×2 (08:42→13:13)
[2020-01-12 09:01] VITALS: BP 131/61
[2020-01-12 16:07] VITALS: BP 137/73
[2020-01-13] MEDS: LORazepam 1 MG TABLET PO SCH ×4 (09:00→21:00)
[2020-01-13] MEDS: MULTIVITAMINS WITH MINERALS, THERAPEUTIC TABLET PO SCH (09:00)
[2020-01-13] MEDS: QUEtiapine FUMARATE 25 MG TABLET PO SCH ×4 (09:00→21:00)
[2020-01-13] MEDS: FLUoxetine HCL 20 MG/5 ML SOLUTION ORAL.SYG PO SCH (09:00)
[2020-01-13] MEDS: HALOPERIDOL LACTATE 5 MG/ML VIAL IM PRN ×5 (09:45→21:55)
[2020-01-13 10:17] VITALS: BP 121/73
[2020-01-13] MEDS: LORazepam 2 MG/ML VIAL IM PRN ×5 (10:19→21:55)
[2020-01-13 16:42] VITALS: BP 100/70
[2020-01-14 08:05] VITALS: BP 122/77
[2020-01-14] MEDS: MULTIVITAMINS WITH MINERALS, THERAPEUTIC TABLET PO SCH (09:00)
[2020-01-14] MEDS: QUEtiapine FUMARATE 25 MG TABLET PO SCH ×4 (09:00→20:32)
[2020-01-14] MEDS: FLUoxetine HCL 20 MG/5 ML SOLUTION ORAL.SYG PO SCH (09:00)
[2020-01-14] MEDS: LORazepam 1 MG TABLET PO SCH ×3 (09:00→16:39)
[2020-01-14] MEDS: LORazepam 2 MG/ML VIAL IM PRN ×4 (09:26→20:37)
[2020-01-14] MEDS: HALOPERIDOL LACTATE 5 MG/ML VIAL IM PRN ×4 (09:27→20:38)
[2020-01-14 16:02] VITALS: BP 119/73
[2020-01-14] MEDS ORDERED: LORazepam 1 MG TABLET PO PRN (19:00)
[2020-01-14] MEDS: LORazepam 2 MG TABLET PO SCH (20:32)
[2020-01-15 08:31] VITALS: BP 141/83
[2020-01-15] MEDS: QUEtiapine FUMARATE 25 MG TABLET PO SCH ×4 (09:00→21:00)
[2020-01-15] MEDS: MULTIVITAMINS WITH MINERALS, THERAPEUTIC TABLET PO SCH (09:00)
[2020-01-15] MEDS: FLUoxetine HCL 20 MG/5 ML SOLUTION ORAL.SYG PO SCH (09:00)
[2020-01-15] MEDS: LORazepam 2 MG TABLET PO SCH ×4 (09:00→21:00)
[2020-01-15] MEDS: LORazepam 2 MG/ML VIAL IM PRN ×3 (09:16→17:35)
[2020-01-15] MEDS: HALOPERIDOL LACTATE 5 MG/ML VIAL IM PRN ×3 (09:17→17:35)
[2020-01-15 16:11] VITALS: BP 108/52
[2020-01-15 22:03] VITALS: BP 118/77
[2020-01-16 08:27] VITALS: BP 142/86
[2020-01-16] MEDS: FLUoxetine HCL 20 MG/5 ML SOLUTION ORAL.SYG PO SCH (08:43)
[2020-01-16] MEDS: QUEtiapine FUMARATE 25 MG TABLET PO SCH ×4 (08:43→21:00)
[2020-01-16] MEDS: LORazepam 2 MG TABLET PO SCH ×4 (08:43→21:00)
[2020-01-16] MEDS: MULTIVITAMINS WITH MINERALS, THERAPEUTIC TABLET PO SCH (08:43)
[2020-01-16] MEDS: LORazepam 2 MG/ML VIAL IM PRN ×2 (09:07→21:51)
[2020-01-16] MEDS: HALOPERIDOL LACTATE 5 MG/ML VIAL IM PRN ×2 (09:07→21:51)
[2020-01-16 13:07] VITALS: BP 137/80
[2020-01-16 16:07] VITALS: BP 123/82
[2020-01-16] MEDS ORDERED: BISACODYL 5 MG EC TABLET PO PRN (19:30)
[2020-01-16 20:19] VITALS: BP 127/77
[2020-01-17 08:36] VITALS: BP 103/71
[2020-01-17] MEDS ORDERED: FLUO-191 PO (09:46)
[2020-01-17] MEDS ORDERED: LORA-1001 PO (09:46)
[2020-01-17] MEDS ORDERED: QUET25TA34 PO (09:46)
[2020-01-17] MEDS: QUEtiapine FUMARATE 25 MG TABLET PO SCH ×2 (10:09→13:11)
[2020-01-17] MEDS: MULTIVITAMINS WITH MINERALS, THERAPEUTIC TABLET PO SCH (10:10)
[2020-01-17] MEDS ORDERED: MULT-1239 PO (10:10)
[2020-01-17] MEDS: FLUoxetine HCL 20 MG/5 ML SOLUTION ORAL.SYG PO SCH (10:10)
[2020-01-17] MEDS: LORazepam 2 MG TABLET PO SCH ×2 (10:11→13:12)
== END 2020-01-17 13:11 | disposition home or self-care (01) | DRG 885 ==
LOC: B3A 20:04 → 3EI 12-03 11:02 → 3EX 12-03 18:31
PROVIDERS: ADMIT Psychiatry & Neurology Psychiatry; ATTEND Psychiatry & Neurology Psychiatry
DX: F25.9 Schizoaffective disorder, unspecified (principal); G93.40 Encephalopathy, unspecified; E78.5 Hyperlipidemia, unspecified; D72.819 Decreased white blood cell count, unspecified; E66.9 Obesity, unspecified; K59.00 Constipation, unspecified; R62.7 Adult failure to thrive; R26.9 Unspecified abnormalities of gait and mobility; R53.1 Weakness; R79.89 Other specified abnormal findings of blood chemistry; Z91.19 Patient's noncompliance with other medical treatment and regimen; Z91.5 Personal history of self-harm; Z79.899 Other long term (current) drug therapy
CPT/HCPCS: 70450; 80074; 82248; 83036; 83605; 83735; 84439; 84443; 86592; 87081; 87389; 97110; 97162; 97166; 97530; G0378; J1630; J2060